=== PATIENT | female | born 1950 | race Caucasian/White ===

== ENCOUNTER 2021-06-17 12:32 | Outpatient (CLI) | payer MEDICARE, SELFPAY ==
--- NOTE | 2021-06-18 09:10 | WPDNEUROLOGY ---
Neurology EEG Report General Information Date of Study: 06/17/21 TEST eeg DIAGNOSIS dysarthria CONDITION OF RECORDING awake drowsy and sleep EEG NUMBER [id number] CLINICAL HISTORY patient reported she has had a small stroke in some time has trouble in speaking EEG DESCRIPTION basic resting occipital frequency consists of large amount of well-organized low to medium voltage 9 to 11 hertz per 2nd alpha admixed with minimal amount of low-voltage 15 to 18 hertz per 2nd beta. During drowsiness low-voltage beta activity seen diffusely admixed with waxing and waning posterior alpha rhythm. Bilateral symmetrical sleep activity seen during sleep with symmetrical spindles. Hyperventilation not done. Photic stimulation produced normal drive. Non paroxysmal. Nonfocal. Non lateralizing. IMPRESSION Normal record
== END 2021-06-17 12:33 | disposition home or self-care (01) ==
LOC: ANHNEURO 12:35
PROVIDERS: Visit Provider Psychiatry & Neurology Neurology
DX: R47.1 Dysarthria and anarthria (principal)
CPT/HCPCS: 95816

== ENCOUNTER 2021-07-24 11:00 | Outpatient (RCR) | payer MEDICARE, SELFPAY ==
--- NOTE | 2021-06-24 16:17 | STOPEVAL ---
SPEECH EVALUATION Thank you for referring Lisa Severino to [facility].? The patient is scheduled to be seen for therapy? [id number] then 2x/week for 2 weeks. Please review, sign, date and return this plan of care RYDER. I agree with and certify that the following plan of care is medically necessary. Referring Physician Date Attending Provider: Billy Nolan MD Therapy Assessment Status Assessment Status Assessment Status Evaluation Outpatient Past Medical History Neurological History Hx Cerebrovascular Accident (CVA) Yes: Patient reports CVA, Cardiovascular History Hx Cardiac Disorders No Significant History Respiratory History Hx Respiratory Disorders No Significant History Gastrointestinal History Hx Gastrointestinal Disorders No Significant History Genitourinary History Hx Genitourinary Disorders No Significant History Musculoskeletal History Hx Musculoskeletal Disorders No Significant History Hematological History Hx Hematological Disorders No Significant History Endocrine History Hx Endocrine Disorders No Significant History HEENT History Hx HEENT Disorders No Significant History Integumentary History Hx Skin Disorders No Significant History Reproductive History Hx Reproductive Disorders No Significant History Psychosocial History Hx Psychiatric Disorders No Significant History Pain History History of Any Previous or Ongoing No Significant History Instance of Pain Anesthesia History Hx Anesthesia Reactions No Significant History Other History Hx Cancer Yes: Breast Cancer 1999 Evaluation Information Problem Diagnosis Dysarthria/Anarthria Onset 01/30/21 Subjective Information Patient reports that Query Text:As Reported By Patient/ approximately one year ago she Family began having episodes of falling a lot due to right foot not lifting over rugs, etc. In the past few months, patient reports that she realized she had begun also having slurred speech. Went to an ENT who referred her to a GI doctor; that doctor referred her to a neurologist. Several months ago, she called her physician in [place] who sent her to a the emergency room. Testing was negative for brain tumor but determined then that she most likely had had a stroke. Patient stated that she
--- NOTE | 2021-06-24 16:33 | PTOPEVAL ---
PHYSICAL THERAPY EVALUATION and PLAN OF CARE Thank you for referring Lisa Severino to [facility].? The patient is scheduled to be seen for therapy? 2x/week for3-5 weeks. Please review, sign, date and return this plan of care RYDER. I agree with and certify that the following plan of care is medically necessary. Referring Physician Date Attending Provider: Billy Nolan MD Evaluation Outpatient Past Medical History Neurological History Hx Cerebrovascular Accident (CVA) Yes: Patient reports CVA, 02/19 Evaluation Information Problem Diagnosis gait abnormality Subjective Information Patient states that she Query Text:As Reported By Patient/ started falling (about 15 Family times) and then she started to notice that her speech started to change - turns out she had a stroke but she is not sure when it happened. residual effects include continued slurred speech, decreased endurance, and right sided weakness. States that she is very slow and she has a difficult time with steps. Pain Assessment Timing of Pain Assessment Timing of Pain Assessment Assessment Self Report Self Report Pain Level 0 Pain Score Pain Score 0: Self Report Lower Extremity Range of Motion General Lower Extremity Range of Motion Reason Not Measured WFL/Left,WFL/Right Lower Extremity Muscle Strength Testing Hip Strength Left Hip Flexion Strength 4+ Good + Hip Extension Strength 3+ Fair + Hip Abduction Strength 3+ Fair + Right Hip Flexion Strength 3 Fair Hip Extension Strength 3 Fair Hip Abduction Strength 3- Fair - Knee Strength Bilateral Knee Flexion Strength 4 Good Knee Extension Strength 4 Good Ankle Strength Bilateral Ankle Dorsiflexion Strength 3+ Fair + Muscle Length Testing Muscle Length Testing Right Prone Knee Flexor Muscle Length ( 90 degrees) Left Prone Knee Flexor Muscle Length ( 90 degrees) Balance Assessment Mabry Balance Assessment Sitting to Standing Independent w/out Hands Unsupported Stance Ability Safely- 2 minutes Sitting Unsupported, Feet on Floor Safely- 2 minutes Standing to Sitting Safely, Minimal Hand Use Transfer Ability Safely, Minimal Hand Use Unsupported Stance- Eyes Closed Supervision, 10 seconds Unsupported Stance- Feet Together Independent, 1 minute Reaching Forward while Standing Safely, 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
--- NOTE | 2021-07-16 14:42 | PTOPEVAL ---
PHYSICAL THERAPY PROGRESS REPORT Thank you for referring Lisa Severino to [facility].? The patient is scheduled to be seen for therapy? 2x/week for 4 weeks. Please review, sign, date and return this plan of care RYDER. I agree with and certify that the following plan of care is medically necessary. Referring Physician Date Attending Provider: Billy Nolan MD Progress Diagnosis gait abnormality Onset 01/30/21 Subjective Information States she still feels Query Text:As Reported By Patient/ uncoordinated. Has had a Family couple of falls without injury . States that she could get up off the floor by herself. Pain Assessment Timing of Pain Assessment Timing of Pain Assessment Assessment Self Report Self Report Pain Level 0 Pain Score Pain Score 0: Self Report Lower Extremity Muscle Strength Testing Hip Strength Left Hip Flexion Strength 4+ Good + Hip Extension Strength 3+ Fair + Hip Abduction Strength 3+ Fair + Right Hip Flexion Strength 4 Good Hip Extension Strength 4- Good - Hip Abduction Strength 3+ Fair + Knee Strength Bilateral Knee Flexion Strength 5 Normal Knee Extension Strength 5 Normal Ankle Strength Bilateral Ankle Dorsiflexion Strength 4- Good - Ankle Strength Comments unable to perform heel or toe walking Muscle Length Testing Muscle Length Testing Right Prone Knee Flexor Muscle Length ( 90 degrees) Left Prone Knee Flexor Muscle Length ( 90 degrees) Gastrocnemius Length (R) Severe Tightness,(L) Severe Tightness Balance Assessment Mabry Balance Assessment: 50/56 points) Time Up Go (TUG) Timed Up and Go Test (TUG) (Seconds) 8 Assistive Devices None Comments 1month ago = 9 5 Time Sit to Stand Time in Seconds 9.76 5 Time Sit to Stand Comments 3 weeks ago: 13.63 seconds Query Text:Normative Data: If Greater Than 15 Seconds, 74% Increase Risk for Recurrent Falls Stair Climbing Assessment Stair Climbing Assessment Technique Alternating Steps Stair Climbing Direction Both Up and Down Stair Climbing Ability Standby Assistance General Exercises Side Bilateral Exercise Type Active,Stabilization, Stretching Exercise Description -stepping over varied sizes of Query Text:Record Sets, Reps, bolster; same while carrying Resistance, and Position something in front of her that will impede her view of the
--- NOTE | 2021-07-16 15:12 | STOPEVAL ---
RE-EVALUATION AND PLAN OF CARE. The patient is scheduled to be seen for therapy? 2 x/week for 4 weeks. Please review, sign, date and return this plan of care RYDER. I agree with and certify that the following plan of care is medically necessary. Referring Physician Date Attending Provider: Billy Nolan MD Therapy Assessment Status Assessment Status Assessment Status Re-evaluation Timing of Pain Assessment Timing of Pain Assessment Assessment Self Report Self Report Pain Level 0 Pain Score Pain Score 0: Self Report ST Clinical Summary Clinical Summary ST Clinical Summary Patient has been seen for a Speech Therapy evaluation and six treatment sessions to address patient's complaints of slurred speech. Patient has been noted to have slow rate of speech with distorted/ elongated vowel sounds and imprecise or omitted consonant sounds. Patient has been observed to have difficulty assessing her own speech, often saying that it just does not sound clear and is slow but unable to assess or describe why. This has made it difficult for her to change at the spontaneous conversational level. Patient's diadochokinetic rates were assessed in order to compare results with the initial evaluation: /b/: 24/5 seconds, precise, increased from 21/5 seconds, good precision. /p/: 23/5 seconds, minimal imprecision; increase from 18/ 5 seconds, moderate imprecision with /m/ substitution. /t/: 21/5 seconds, mild imprecision; increase from 17/ 5 seconds, moderate imprecision. /l/: 20/5 seconds, mild imprecision; increase from 16/ 5 seconds, mild imprecision. /k/: 17/5 seconds, mild imprecision; increase from 13/ 5 seconds, moderate
--- NOTE | 2021-07-30 13:27 | PCSTNOTE ---
Therapist was informed that patient requested off this week. Resume next week.
--- NOTE | 2021-08-04 11:24 | PCPTNOTE ---
Patient called & cancelled scheduled appointment this date due to having COVID-19.
--- NOTE | 2021-08-11 08:17 | PCPTNOTE ---
PHYSICAL THERAPY DISCHARGE NOTE Attending Provider: Billy Nolan MD Patient:Lisa Severino Date of :1950 Patient called to cancel her remaining appointments with us because she is moving to [place]. Her last progress note was sent on 07/16/2021. Thank you for referring this patient to [facility]. Please review, sign, date and return this discharge summary RYDER. I have been updated about the patient's current status and I agree with discharge from the above service at this time. Referring Physician Date
--- NOTE | 2021-08-11 10:24 | STOPEVAL ---
Thank you for referring Lisa Severino to [facility].? Attending Provider: Billy Nolan MD Therapy Assessment Status Assessment Status Discharge - Pt Not Present Clinical Summary ST Clinical Summary Patient has been seen for a Speech Therapy evaluation and eight treatment sessions addressing dysarthria including slow rate of speech and imprecise consonant productions. Patient has made significant progress in her ability to complete diadochokinetic rate tasks, including increased rate of repetition of labial/lingual sounds, and improved speech sound precision. At the same time, at her last visit, patient's slow rate of speech and imprecise consonant productions, although improved , were still present. Patient cancelled the week of July 28 due to the holidays, and then the next week due to being ill. When therapist called to discuss the next week's schedule (August 11 and visits), patient reported that she is cancelling these visits and discontinuing Speech Therapy and Physical Therapy due to returning to her home in [place]. She stated that she will pursue continued therapy in her home town. Patient is being discharged from direct Speech Therapy with goals partially achieved. Thank you for this referral. ST Services Indicated No
== END 2021-08-27 09:13 | disposition home or self-care (01) ==
LOC: ANHPT 11:00
PROVIDERS: Visit Provider Psychiatry & Neurology Neurology
DX: R26.89 Other abnormalities of gait and mobility (principal); R47.1 Dysarthria and anarthria
CPT/HCPCS: 92507; 92523; 97110; 97162

== ENCOUNTER 2021-11-28 06:37 | Outpatient (CLI) | payer MEDICARE, SELFPAY ==
--- NOTE | ~2021-11-28 | MR_ITS ---
EXAMINATION: MR thoracic spine wo/w con DATE: 11/28/2021 08:43 INDICATION: Unspecified abnormalities of gait and mobility. TECHNIQUE: Magnetic resonance imaging (MRI) of the thoracic spine was performed without and with 13 m L MultiHance intravenous contrast. COMPARISON: None FINDINGS: There is 9 degrees dextrocurvature of thoracic spine. Vertebral body heights are normal. In tervertebral disc heights are normal. At T2-T3, there is a right central protrusion with mild central canal stenosis. At T3-T4, there is a left central protrusion with mild central canal stenosis. At T5 -T6, there is a left central extrusion with mild central canal stenosis. There is multilevel facet radha int osteoarthritis, severe bilaterally at T1-T2. On the right, there is mild neural foraminal stenosi s at T1-T2 and T2-T3. On the left, there is mild neural foraminal stenosis at T1-T2. The spinal cord signal intensity is normal. IMPRESSION: 1. Mild thoracic spondylosis. Reviewed, dictated and finalized at location A.
--- NOTE | ~2021-11-28 | MR_ITS ---
EXAMINATION: MR cervical spine wo/w con DATE: 11/28/2021 08:42 INDICATION: Unspecified abnormalities of gait and mobility. TECHNIQUE: Magnetic resonance imaging (MRI) of the cervical spine was performed without and with 13 m L MultiHance intravenous contrast. Sequences included sagittal and axial T2-weighted FSE, sagittal T2 -weighted FS FSE, and sagittal and axial T1-weighted FSE. Postcontrast sequences included sagittal an d axial T1-weighted FS FSE. COMPARISON: None FINDINGS: There is a 13 mm nodule in right thyroid lobe, likely not clinically significant. Vertebral body heights are normal. Vertebral body heights are normal. There is moderately decreased disc heigh t at C3-C4, mildly decreased disc height at C4-C5 and C5-C6, and moderately decreased disc height at C6-C7 with endplate remodeling. The spinal cord signal intensity is normal. The following disc levels are specifically discussed: C2-C3: There is a central protrusion. There is no uncovertebral joint osteoarthritis. There is mild b ilateral facet joint osteoarthritis. There is no neural foraminal stenosis. There is no central canal stenosis. C3-C4: The disc is bulging. There is moderate right and severe left uncovertebral joint osteoarthriti s. There is moderate right and severe left facet joint osteoarthritis. There is mild right and modera te left neural foraminal stenosis. There is mild central canal stenosis. C4-C5: The disc is bulging. There is severe bilateral uncovertebral joint osteoarthritis. There is se darshan left facet joint osteoarthritis. There is moderate right and mild left neural foraminal stenosis . There is mild central canal stenosis. C5-C6: The disc is bulging. There is moderate bilateral uncovertebral joint osteoarthritis. There is mild bilateral facet joint osteoarthritis. There is mild bilateral neural foraminal stenosis. There i s mild central canal stenosis. C6-C7: The disc is bulging. There is moderate bilateral uncovertebral joint osteoarthritis. There is no facet joint osteoarthritis. There is mild bilateral neural foraminal stenosis. There is mild centr al canal stenosis. C7-T1: There is a central extrusion. There is no uncovertebral joint osteoarthritis. There is severe right and moderate left facet joint osteoarthritis. There is mild bilateral neural foraminal stenosis . There is mild central canal stenosis. IMPRESSION: 1. Moderate cervical spondylosis. Reviewed, dictated and finalized at location A.
[2021-11-28 07:34] LABS: Estimated Glomerular Filt Rate > 60
== END 2021-11-28 06:38 | disposition home or self-care (01) ==
PROVIDERS: PCP Internal Medicine; Visit Provider Psychiatry & Neurology Neurology
DX: R26.9 Unspecified abnormalities of gait and mobility (principal); M47.894 Other spondylosis, thoracic region; M47.892 Other spondylosis, cervical region
CPT/HCPCS: 72156; 72157; A9577